=== PATIENT | male | born 1965 | race Caucasian/White ===

== ENCOUNTER → 2021-10-04 14:33 | Outpatient (CLI) | payer BC, SELFPAY ==
--- NOTE | ~2021-10-04 | XR_ITS ---
XR hand RT 2V DATE: 10/04/2021 14:42 INDICATION: Right hand pain. Swelling at third metacarpal area. No injury. TECHNIQUE: 3 views COMPARISON: None FINDINGS: No fracture, dislocation, periosteal reaction or bone destruction. No erosive change or cho ndrocalcinosis. Joint spaces are relatively well preserved. IMPRESSION: No significant abnormality Reviewed, dictated and finalized at location B. IMPRESSION: No significant abnormality
== END ==
PROVIDERS: PCP Nurse Practitioner; Visit Provider Nurse Practitioner
DX: M79.641 Pain in right hand (principal)
CPT/HCPCS: 73120

== ENCOUNTER 2022-03-15 11:12 | Outpatient (CLI) | payer BC, SELFPAY ==
[2022-03-15 20:16] LABS: SARS-CoV-2 RNA PCR Negative
== END 2022-03-15 11:13 | disposition home or self-care (01) ==
LOC: ANHGOSHLAB 11:15
PROVIDERS: PCP Nurse Practitioner; Visit Provider Nurse Practitioner
DX: R05.9 Cough, unspecified (principal); Z20.822 Contact with and (suspected) exposure to COVID-19
CPT/HCPCS: U0003; U0005

== ENCOUNTER 2024-08-19 10:44 | Emergency (ER) | payer BC, SELFPAY ==
[2024-08-19 11:04] VITALS: BP 148/102; PULSE 88; RESP 20; TEMP 36.4; O2SAT 98
--- NOTE | 2024-08-19 11:22 | ED_ITS ---
HPI - Skin/Abscess/Foreign Bdy General Chief complaint: Skin/Abscess/Foreign Body Stated complaint: Rash Time Seen by Provider: 08/19/24 11:24 Source: patient, RN notes reviewed and old records reviewed Mode of arrival: ambulatory Limitations: no limitations History of Present Illness HPI narrative: 59-year-old male presents to the [facility] with complaints of a rash to the upper chest and arms, states has been going on for 1 week. Describes it is being very itchy. Has applied hydrocortisone cream. Denies any new creams ointments lotions detergents. Denies any new foods. States that he was concerned because he had a a mosquito bite that has now improved to the right lateral thigh. No area noted on exam. Patient denies any chest pain, shortness of breath. No lip or tongue swelling. Related Data Home Medications ?Medication ?Instructions ?Recorded ?Confirmed ?Last Taken ?Type viloxazine 200 mg capsule,extended 600 mg PO QAM 01/20/22 05/31/24 Unknown History release 24 hr (Qelbree) dextroamphetamine-amphetamine 10 10 mg PO DAILY 05/25/22 05/31/24 Unknown History mg tablet (Adderall) multivitamin 1 tablet PO DAILY 05/31/23 05/31/24 Unknown History Allergies Allergy/AdvReac Type Severity Reaction Status Date / Time No Known Allergies Allergy Verified 08/19/24 11:48 Review of Systems Review of Systems: All systems reviewed & are unremarkable except as noted in HPI and below Constitutional: Constitutional: Reports no additional constitutional complaints ENT: Reports system reviewed and no additional complaints, except as documented Cardiovascular: Cardiovascular: Reports no additional cardiovascular complaints, Denies chest pain and Denies dyspnea Respiratory: Respiratory: Reports no additional respiratory complaints, Denies chest congestion, Denies cough and Denies dyspnea Musculoskeletal: Musculoskeletal: Reports no additional musculoskeletal complaints Integumentary/Breasts: Skin/Breast: Reports as per HPI and Reports rash PMFSH Past Medical History Medical History Adult ADHD Essential hypertension Hypercholesterolemia Family History Family History Mother Patient's mother is in good health Grandparent Acute myocardial infarction, Onset Age: 72 Kidney failure Colon cancer metastasized to bone Father MVA (motor vehicle accident) Social History Social History Smoking status: Never smoker Alcohol intake: current Alcohol use details: socially Substance use: never Substance use type: does not use Do You Feel Safe in your Home?: Yes Lack of Transportation: No Lack of Food: Never True Current Housing: I Have Housing Concerned About Future Housing: No Difficulty Paying Gas/Electric Bills: No Difficulty Paying for Meds: No Currently Unemployed: No Education: Master's Degree or Higher Difficulty w/ Childcare or Family Care: No Living arrangements: with family Additional living arrangements comments: Occupation/Education: occupation Gender identity (if verbalized by the patient): Male Sexual Orientation (if Verbalized by the Patient): Straight or Heterosexual Agree to blood products: Yes Comments At the time of my signature, I reviewed and agree with the nursing past medical, surgical, social, and family history. There is no relevant family history pertinent to the patient complaint. Exam Const: General: cooperative, healthy appearing, comfortable, no acute distress, well developed, alert and well nourished Nutritional Appearance: well nourished Orientation/consciousness: patient oriented x3 Limitations: no limitations HENMT: Head: normal to inspection Ears: hearing grossly normal bilaterally, external ears normal, TM's normal bilaterally, EAC's normal, mastoids normal and no periauricular adenopathy Mouth: Yes Normal oral and palatal mucosa present, Yes lip normal, Yes tongue normal and Yes moist mucous membranes Throat: posterior oropharynx normal, uvula midline and no uvular edema Eyes: General: appearance normal, both eyes and all related structures Alignment and Position: alignment normal Neck: Neck: normal visual inspection, full ROM, no lymphadenopathy and no meningeal signs Chest: Chest palpation & inspection: normal inspection of the chest Resp: Effort & Inspection: normal respiratory effort and able to speak in complete sentences Auscultation: clear to auscultation bilaterally, no crackles, no rales, no rhonchi and no wheezes Cardio: Rate: regular rate Skin: General skin exam: normal color and no rashes or lesions noted Other: Red, patchy, blanchable rash to the upper chest, arms. Neuro: General: patient oriented x3, gait normal, moves all extremities and no meningeal signs Cognition (Neuro): normal cognition Speech: normal speech Gait exam (Neuro): Normal gait present Extrem: General: normal to inspection, full ROM, capillary refill normal and normal gait Psych: Appearance: grossly normal and well kempt Mental Status: mental status grossly normal Speech and movement: Normal speech and movement present and Clear speech present Affect: normal affect Attitude: cooperative Course Course Level of Care: Express Care Visit Vital Signs Vital signs: Vital Signs Temperature 97.5 F L 08/19/24 11:04 Pulse Rate 88 08/19/24 11:04 Respiratory Rate 20 08/19/24 11:04 Blood Pressure 148/102 H 08/19/24 11:04 Pulse Oximetry 98 08/19/24 11:04 Oxygen Delivery Room Air 08/19/24 11:04 Temperature 97.5 F L 08/19/24 11:04 Pulse Rate 88 08/19/24 11:04 Respiratory Rate 20 08/19/24 11:04 Blood Pressure 148/102 H 08/19/24 11:04 Pulse Oximetry 98 08/19/24 11:04 Oxygen Delivery Room Air 08/19/24 11:04 Reviewed MDM - Skin/Abscess/Foreign Bdy MDM Narrative Medical decision making narrative: Patient sitting in exam room. Patient is nontoxic, vitals stable. Patient presents with a rash x1 week. Patient's exam consistent with a probable dermatitis, hives, will treat with [id number] products and prednisone. Patient verbalized understanding. Discharge instructions reviewed with patient, as well as provided in writing per nursing staff. The instructions also include specific and strict return/GO TO THE ER as well as f/u information. All questions have been answered, and the patient deny any further questions with discharge and discharge plan. Some parts of this dictation were generated by voice recognition software and may contain typographical and/or grammatical inaccuracies. Differential Diagnosis Differential diagnosis: Likely abscess of skin or subcutaneous tissue, viral exanthem, urticaria, allergic reaction to drug, cellulitis, eczema, insect bites, impetigo and contact dermatitis Critical Care Time Critical Care Time Critical Care Time: No Discharge Plan Discharge Clinical Impression: Dermatitis Patient Disposition: Home Condition: Stable Instructions: Dermatitis (ED) Additional Instructions: The most important part of your care is follow up with Primary care provider. Take Benadryl 25 mg every 8 hours for itching Take Zyrtec every day Take Pepcid 20mg daily for 7 days Take the steroids starting today, take daily in the morning Avoid hot showers, Take cool showers. Hot showers will make rashes worse Apply cool compresses every 2-3 hours for 15 minutes Go to the ER for new or worsening symptoms such as shortness of breath. Patient Language: [place]ian Prescriptions: New prednisone 20 mg tablet See Rx Instructions .Route .COMPLEX Qty: 15 0RF Rx Instructions: Take 40 mg daily for 5 days, 20 mg daily for 5 days No Action multivitamin Tablet 1 tablet PO DAILY Qelbree 200 mg capsule,extended release 24hr 600 mg PO QAM dextroamphetamine-amphetamine [Adderall] 10 mg tablet 10 mg PO DAILY lisinopril 10 mg tablet 10 mg PO DAILY Qty: 90 1RF Follow-up/Referrals: PHYSICIAN,INSOLE RASPER [Primary Care Provider] - Eder Sevilla DO [Physician] - (express care follow up blood pressure check) Time of Disposition: 11:46
== END 2024-08-19 11:49 | disposition home or self-care (01) ==
PROVIDERS: Emergency Provider Nurse Practitioner
DX: L30.9 Dermatitis, unspecified (principal); I10 Essential (primary) hypertension; E78.00 Pure hypercholesterolemia, unspecified; F90.9 Attention-deficit hyperactivity disorder, unspecified type
CPT/HCPCS: 99213; G0463